=== PATIENT | male | born 1955 | race Caucasian/White ===

== ENCOUNTER 2025-06-28 10:18 | Outpatient (REF) | payer OTHER, MEDICARE, SELFPAY ==
--- NOTE | ~2025-06-28 | XR_ITS ---
EXAMINATION: XR SHOULDER, LEFT CLINICAL INFORMATION: M25.512 - Pain in left shoulder COMPARISON: None available. TECHNIQUE: Two views of the left shoulder. FINDINGS: Normal bone mineralization. No fracture, dislocation, or suspicious bone lesion. Normal alignment. The glenohumeral joint demonstrates mild degenerative arthritis. The AC joint demonstrates minimal widening and mild spurring is prominent superiorly. There is a type II acromion. No undersurface spurring. The subacromial space is preserved. Remainder of the soft tissue and bony structures appear normal. XR/XR shoulder LT min 2V IMPRESSION: 1. No acute bony abnormalities. 2. 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 Electronically signed by: Michael Mason MD 06/28/2025 11:23 AM EDT
--- OUTSIDE RECORDS SUMMARY | 2025-06-28 12:19 | XMS_ITS | Clinical Summary ---
Author Organization [facility] Address [address] [place] [phone] Phone Care Team Providers Care Advertising Clerk Name Role Phone Shelly Jane MD Primary Care Provider Allergies No known active allergies Medications meclizine (ANTIVERT) 25 mg tablet Take by mouth as needed Active olmesartan (BENICAR) 40 mg tablet Take 1 Tablet by mouth daily Active dilTIAZem LA (CARDIZEM LA) 180 mg 24 hr tablet dilTIAZem HCl ER 180 MG TABLET SR 24 HR Take by mouth Active lovastatin (MEVACOR) 40 mg tablet Take 1 Tablet by mouth at bedtime. Active celecoxib (CeleBREX) 200 mg capsule Take 1 capsule (200 mg total) by mouth 1 (one) time each day. 4 Active hydrocortisone (ANUSOL-HC) 2.5 % rectal cream APPLY TOPICALLY 3 TIMES A DAY DIRECTED 4 Active Surgical History Surgery Date Site/Laterality Comments KNEE SURGERY 09/22/2021 - 09/21/2022 Right SHOULDER SURGERY Right rotator cuff HERNIA REPAIR Bilateral inguinal Medical History Medical History Date Comments Change in bowel habits DX:Change in bowel habits Encounter for screening colonoscopy DX:Encounter for screening colonoscopy Hypertension Hyperlipidemia Social History Tobacco Use Types Packs/Day Years Used Date Smoking Tobacco: Former Cigars Smokeless Tobacco: Never Tobacco Cessation:Counseling Given: Not Answered Comments:cigars Alcohol Use Standard Drinks/Week Comments Yes 0 (1 standard drink = 0.6 oz pur e alcohol) Interpersonal Safety Answer Date Record ed Physical Abuse Unrecognized value 08/03/2024 Verbal Abuse Unrecognized value 08/03/2024 Sex and Gender Information Value Date Recorded Sex Assigned at Male 08/01/2024 1:32 PM EST Legal Sex Male 10:25 AM EST Gender Identity Male 08/01/2024 1:32 PM EST Sexual Orientation Straight 08/01/2024 1: 32 PM EST Obstetrics History Last Filed Vital Signs Vital Sign Reading Time Taken Comments Blood Pressure 176/56 08/03/2024 4:24 PM EST Pulse 55 08/03/2024 4:24 PM EST Temperature 36.7 C (98 F) 08/03/2024 4:24 PM EST Respiratory Rate 15 08/03/2024 4:24 PM EST Oxygen Saturation 99% 08/03/2024 4:24 PM EST Inhaled Oxygen Concentration - - Weight 75.8 kg (167 lb) 08/03/2024 3:21 PM EST Height 176.8 cm (5' 9.6 ) 08/03/2024 3:21 PM EST Body Mass Index 24.24 08/03/2024 3:21 PM EST Plan of Treatment Health Maintenance Due Date Last Done Comments DTaP,Tdap,and Td Vaccines (1 - Tdap) 1973 Pneumococcal Vaccine: 50+ Years (1 of 1 - PCV) 2004 Zoster Vaccines (1 of 2) 2004 Abdominal Aortic Aneurysm (AAA) Screen 08/20/2022 Cholesterol Screening (Lipid Panel) 08/20/2022 Hepatitis C Screening 08/20/2022 Medicare Annual Wellness Visit 08/20/2022 Social Influencers of Health Screening 08/20/2022 Hypertension/CHF/CAD Annual BMP Blood Test 08/03/2024 Depression Screening 09/22/2024 COVID-19 Vaccine ( season) 2025 12/21/2020, 11/30/2020 Influenza Vaccine (#1) 2025 3, 07/27/2022, 08/01/2021, Additional history exists Falls Risk Assessment 08/03/2025 08/03/2024 RSV Immunization Adult Patients (1 - 1-dose 75+ series) 2029 Colorectal Cancer Screening: Colonoscopy 08/03/2034 08/03/2024 HIB Vaccines Aged Out No longer eligi ble based on patient's age to complete this topic HPV Vaccines Aged Out No longer eligi ble based on patient's age to complete this topic Hepatitis A Vaccines Aged Out No long er eligible based on patient's age to complete this topic Hepatitis B Vaccines Aged Out No long er eligible based on patient's age to complete this topic IPV Vaccines Aged Out No longer eligi ble based on patient's age to complete this topic MMR Vaccines Aged Out No longer eligi ble based on patient's age to complete this topic Meningococcal ACWY Vaccine Aged Out N o longer eligible based on patient's age to complete this topic Meningococcal B Vaccine Aged Out No l onger eligible based on patient's age to complete this topic RSV Immunization Patients Under 20 months Aged Out No longer eligible based on patient's age to complete this topic Varicella Vaccines Aged Out No longer eligible based on patient's age to complete this topic Procedures Procedure Name Priority Date/Time Associated Diagnosis Comments COLONOSCOPY Routine 08/03/2024 4:03 PM EST Screen for colon cancer from Last 3 Months or Most Recently Relevant to Health Maintenance Results * COLONOSCOPY Anesthesia - MAC; [facility] ENDOSCOPY (08/03/2024 4:03 PM EST) Anatomical Region Laterality Modality Endoscopy 08/03/2024 3:40 PM EST Narrative 08/03/2024 4:04 PM EST [facility] GI Patient Name: Krystian Monk Procedure Date: 08/03/2024 3:40 PM Date of : 1955 Age: 68 Gender: Male Note Status: Finalized Attending MD: Matias Sinhg DO, [id number] Procedure Date No Time: 08/03/2024 Procedure: Colonoscopy Indications: Incidental change in bowel habits noted Providers: Matias Singh DO Referring MD: Shelly Jane MD Medicines: Monitored Anesthesia Care Complications: No immediate complications. Estimated blood loss: Minimal. Estimated Blood Loss: Estimated blood loss was minimal. Procedure: Pre-Anesthesia Assessment: - - Prior to the procedure, a History and Physical was performed, and patient medications and allergies were reviewed. The patient is competent. The risks and benefits of the procedure and the sedation options and risks were discussed with the patient. All questions were answered and informed consent was obtained. Patient identification and proposed procedure were verified by the physician, the nurse, the anesthesiologist, the mrp controller and the hazardous waste material technician in the pre-procedure area in the endoscopy suite. Mental Status Examination: alert and oriented. Airway Examination: normal oropharyngeal airway and neck mobility. Respiratory Examination: clear to auscultation. CV Examination: normal. Prophylactic Antibiotics: The patient does not require prophylactic antibiotics. Prior Anticoagulants: The patient has taken no anticoagulant or antiplatelet agents. ASA Grade Assessment: II - A patient with severe systemic disease. After reviewing the risks and benefits, the patient was deemed in satisfactory condition to undergo the procedure. The anesthesia plan was to use monitored anesthesia care (MAC). Immediately prior to administration of medications, the patient was re-assessed for adequacy to receive sedatives. The heart rate, respiratory rate, oxygen saturations, blood pressure, adequacy of pulmonary ventilation, and response to care were monitored throughout the procedure. The physical status of the patient was re-assessed after the procedure. After I obtained informed consent, the scope was passed under direct vision. Throughout the procedure, the patient's blood pressure, pulse, and oxygen saturations were monitored continuously.The Colonoscope was introduced through the anus and advanced to the terminal ileum. The colonoscopy was performed without difficulty. The patient tolerated the procedure well. The quality of the bowel preparation was good. Findings: Hemorrhoids were found on perianal exam. A few small-mouthed diverticula were found in the sigmoid colon and descending colon. There was no evidence of diverticular bleeding. The colon (entire examined portion) appeared normal. Biopsies were taken with a cold forceps for histology. Estimated blood loss was minimal. The terminal ileum contained two sessile, non-bleeding polyps. The polyps were 5 mm in diameter. The polyp was removed with a cold snare. Resection and retrieval were complete. Estimated blood loss was minimal. The exam was otherwise without abnormality on direct and retroflexion views. Impression: - Hemorrhoids found on perianal exam. - The entire examined colon is normal. Biopsied. - Two polyps in the terminal ileum, removed with a cold snare. Resected and retrieved. - The examination was otherwise normal on direct and retroflexion views. Recommendation: - - Discharge patient to home. - High fiber diet. - Continue present medications. - Await pathology results. - Repeat colonoscopy for surveillance based on pathology results. Procedure Code(s): --- Professional --- 05002, Colonoscopy, flexible; with removal of tumor(s), polyp(s), or other lesion(s) by snare technique 15645, 59, Colonoscopy, flexible; with biopsy, single or multiple Diagnosis Code(s): --- Professional --- D13.39, Benign neoplasm of other parts of small intestine K64.9, Unspecified hemorrhoids CPT copyright 2020 [employer]. All rights reserved. The codes documented in this report are preliminary and upon hook tender review may be revised to meet current compliance requirements. MATIAS SINGH Matias Singh DO 08/03/2024 4:04:16 PM This report has been signed electronically.Matias Singh DO Number of Addenda: 0 Note Initiated On: 08/03/2024 3:40 PM Scope Withdrawal Time: 0 hours 6 minutes 42 seconds Scope In: 3:51:35 PM Scope Out: 4:02:14 PM Endoscopy Department at [facility] - [address] [place] [phone] Procedure Note Matias Singh DO - 08/03/2024 [facility] GI Patient Name: Krystian Monk Procedure Date: 08/03/2024 3:40 PM Date of : 1955 Age: 68 Gender: Male Note Status: Finalized Attending MD: Matias Singh DO,[id number] Procedure Date No Time: 08/03/2024 Procedure: Colonoscopy Indications: Incidental change in bowel habits noted Providers: Matias Singh DO Referring MD: Shelly Jane MD Medicines: Monitored Anesthesia Care Complications: No immediate complications. Estimated blood loss: Minimal. Estimated Blood Loss: Estimated blood loss was minimal. Procedure: Pre-Anesthesia Assessment: - - Prior to the procedure, a History and Physicalwas performed, and patient medications and allergieswere reviewed. The patient is competent. The risks and benefits of the procedure and the sedation optionsand risks were discussed with the patient. Allquestions were answered and informed consent was obtained. Patient identification and proposed procedure were verified by the physician, the nurse, the anesthesiologist, the mrp controller and thetechnician in the pre-procedure area in the endoscopy suite. Mental Status Examination: alert and oriented.Airway Examination: normal oropharyngeal airway and neck mobility. Respiratory Examination: clear to auscultation. CV Examination: normal. Prophylactic Antibiotics: The patient does not requireprophylactic antibiotics. Prior Anticoagulants: The patient has taken no anticoagulant or antiplatelet agents. ASA Grade Assessment: II - A patient with severesystemic disease. After reviewing the risks and benefits,the patient was deemed in satisfactory condition to undergo the procedure. The anesthesia plan was touse monitored anesthesia care (MAC). Immediately priorto administration of medications, the patient was re-assessed for adequacy to receive sedatives. The heart rate, respiratory rate, oxygen saturations, blood pressure, adequacy of pulmonary ventilation,and response to care were monitored throughout the procedure. The physical status of the patient was re-assessed after the procedure. After I obtained informed consent, the scope was passed under direct vision. Throughout theprocedure, the patient's blood pressure, pulse, and oxygen saturations were monitored continuously.The Colonoscope was introduced through the anus and advanced to the terminal ileum. The colonoscopy was performed without difficulty. The patient tolerated the procedure well. The quality of the bowel preparation was good. Findings: Hemorrhoids were found on perianal exam. A few small-mouthed diverticula were found in the sigmoid colon and descending colon. There was no evidence of diverticular bleeding. The colon (entire examined portion) appearednormal. Biopsies were taken with a cold forceps forhistology. Estimated blood loss was minimal. The terminal ileum contained two sessile,non-bleeding polyps. The polyps were 5 mm in diameter. The polyp was removed with a cold snare. Resection andretrieval were complete. Estimated blood loss was minimal. The exam was otherwise without abnormality ondirect and retroflexion views. Impression: - Hemorrhoids found on perianal exam. - The entire examined colon is normal. Biopsied. - Two polyps in the terminal ileum, removed with a cold snare. Resected and retrieved. - The examination was otherwise normal on directand retroflexion views. Recommendation: - - Discharge patient to home. - High fiber diet. - Continue present medications. - Await pathology results. - Repeat colonoscopy for surveillance based on pathology results. Procedure Code(s): --- Professional --- 73719, Colonoscopy, flexible; with removal of tumor(s), polyp(s), or other lesion(s) by snare technique 51306, 59, Colonoscopy, flexible; with biopsy,single or multiple Diagnosis Code(s): --- Professional --- D13.39, Benign neoplasm of other parts of small intestine K64.9, Unspecified hemorrhoids CPT copyright 2020 [employer]. All rights reserved. The codes documented in this report are preliminary and upon hook tender reviewmay be revised to meet current compliance requirements. MATIAS SINGH Matias Singh DO 08/03/2024 4:04:16 PM This report has been signed electronically.Matias Singh DO Number of Addenda: 0 Note Initiated On: 08/03/2024 3:40 PM Scope Withdrawal Time: 0 hours 6 minutes 42 seconds Scope In: 3:51:35 PM Scope Out: 4:02:14 PM Endoscopy Department at [facility] - [address] [place] [phone] Matias Singh DO GI~PROCEDURE ORDERABLES Final Re sult from Last 3 Months or Most Recently Relevant to Health Maintenance Insurance MEDICARE [facility] Care Teams Advertising Clerk Relationship Specialty Start Date End Date Shelly Jane MD [address] [place] [address] PCP - General 02/10/24
== END 2025-06-28 10:19 | disposition home or self-care (01) ==
LOC: HO.HOSX 10:18
PROVIDERS: Visit Provider Orthopaedic Surgery
DX: M25.312 Other instability, left shoulder (principal)
CPT/HCPCS: 73030

== ENCOUNTER 2025-06-28 11:14 | Outpatient (AMB) | payer OTHER, MEDICARE, SELFPAY ==
--- NOTE | 2025-06-28 11:19 | MHC.OFFVIS ---
Vital Signs 06/28/25 11:29 Height 5 ft 8 in Weight 160 lb BMI 24.3 Intake Visit Reasons: Left shoulder pain and weakness Intake Note: Krystian is a 69 year old male right hand dominant who presents with complaints of progressively worsening left shoulder pain and weakness. The patient did undergo right shoulder surgery approximately 15 years ago. He reports minimal discomfort in his right shoulder. The patient states that he injured his left shoulder several months ago when he collided with another player while playing ice hockey. He fell directly onto his left shoulder. He has failed the last 6 weeks of conservative treatment which has included Tylenol, Celebrex, a home exercise program and physical therapy exercises. He has had cortisone injections in the past which gave him no relief. The patient has not been able to play hockey or cough because of his left shoulder pain and weakness. Allergies No Known Allergies Allergy (Verified 06/28/25 11:27) Medication List - Last Reconciled 06/28/25 by Austyn Ford MD amoxicillin 2,000 mg PO ONCE aspirin 81 mg PO DAILY celecoxib 200 mg PO DAILY diltiazem HCl CD 180 mg PO DAILY olmesartan 40 mg PO DAILY Physical Exam Const Other: Well-nourished well-developed very friendly male awake alert and oriented x3 in no acute distress Extrem Other: Left shoulder examination shows decreased range of motion when compared to his right shoulder, 4/5 strength with supraspinatus testing, positive impingement signs, tenderness over his acromioclavicular joint, no instability Results Reviewed Results Reviewed: X-rays of the patient's left shoulder show severe acromioclavicular joint narrowing, a type 2 acromion, no acute bony abnormalities Assessment & Plan Assessment & Plan (1) Rotator cuff insufficiency of left shoulder: Code(s): M25.312 - Other instability, left shoulder Category: Medical Plan Mr. Mckeon presents with progressively worsening left shoulder pain and weakness due to impingement syndrome and most likely a full-thickness rotator cuff tear. Thus, I will send the patient for an MRI of his left shoulder for further evaluation. I will see him back once the MRI is completed to discuss the findings and treatment options. He will continue with his range of motion exercises in the meantime. I spent 20 minutes in reviewing the patient's records and imaging studies, seeing the patient and documenting in the medical record. Orders: Orders MR odom LT wo con 10/08/25 M25.312 - Other instability, left shoulder XR shoulder LT min 2V Today M25.512 - Pain in left shoulder Coding Level of Care Code New Pt Level 3 (03925) Complex EM visit Add On G2211 Diagnoses Rotator cuff insufficiency of left shoulder M25.312
[2025-06-28 11:29] VITALS: BMI 24.3
== END 2025-06-28 11:43 | disposition home or self-care (01) ==
LOC: HO.HOS 11:14
PROVIDERS: Visit Provider Orthopaedic Surgery
DX: M25.312 Other instability, left shoulder (principal)
CPT/HCPCS: 99203

== ENCOUNTER → 2025-06-28 11:15 | Outpatient (BNV) | payer MEDICARE, OTHER, SELFPAY | PROVIDERS: Visit Provider Radiology Diagnostic Radiology | DX: M19.012 Primary osteoarthritis, left shoulder (principal) | CPT/HCPCS: 73030 ==

== ENCOUNTER → 2025-07-28 16:26 | Outpatient (BNV) | payer MEDICARE, OTHER, SELFPAY | PROVIDERS: PCP Internal Medicine Pulmonary Disease; Visit Provider Radiology Diagnostic Radiology | DX: M75.122 Complete rotator cuff tear or rupture of left shoulder, not specified as traumatic (principal); S43.302A Subluxation of unspecified parts of left shoulder girdle, initial encounter; M19.012 Primary osteoarthritis, left shoulder; M25.412 Effusion, left shoulder | CPT/HCPCS: 73221 ==

== ENCOUNTER 2025-07-28 16:27 | Outpatient (REF) | payer MEDICARE, OTHER, SELFPAY ==
--- NOTE | ~2025-07-28 | MR_ITS ---
EXAMINATION: MRI Shoulder without contrast, left TECHNIQUE: Multiplanar multisequence MR imaging through an upper extremity joint without contrast. INDICATION: Hit during a hockey game 2 months ago, shoulder pain since then PRIOR: None FINDINGS: Rotator Cuff: There is a full-thickness tear of supraspinatus and infraspinatus tendons which are retracted medially 2.5 cm. Superficial fibers of subscapularis tendon are torn and retracted. Deep fibers remain intact. More than half the tendon is torn. Labrum: There is a tear in the posterior labrum between 2-4:00. Long biceps tendon: Multiple displaced from the groove position superficial to the remaining intact fibers of subscapularis tendon. Acromioclavicular joint: There is mild elevation of distal clavicle. There is no acute edema. Axillary pouch: There is a small complex joint effusion. Articular cartilage: Near full-thickness cartilage defect is noted in the posterior half of the glenoid. There is thinning of articular cartilage in the central humeral head. Bones/Marrow: Degenerative cystic changes noted in the anterior half of the greater tuberosity. There are small marginal osteophytes involving humeral head and glenoid. Soft tissues: There is mild edema and fatty streaking involving supraspinatus and subscapularis muscles. MR/MR shoulder LT wo con IMPRESSION: Full-thickness rotator cuff tear involving supraspinatus and infraspinatus tendons with 2.5 cm retraction. There is mild edema and fatty streaking of supraspinatus muscle. There is a deep tear of the bursal surface of subscapularis tendon which is retracted to the level of the glenohumeral joint. Tear involves more than half the tendon thickness. There is edema within subscapularis muscle. Long biceps tendon is medially dislocated from biceps groove There is moderate degenerative change involving glenohumeral joint. Chronic type II AC joint separation There is small complex joint effusion Electronically signed by: Parminder Rico MD 07/28/2025 05:28 PM EST
--- OUTSIDE RECORDS SUMMARY | 2025-07-28 18:48 | XMS_ITS | Clinical Summary ---
Author Organization [facility] Address [address] [place] [phone] Phone Care Team Providers Care Manager Global Communications Name Role Phone Shelly Jane MD Primary [...] Maintenance Results * COLONOSCOPY Anesthesia - MAC; [facility] ENDOSCOPY (08/03/2024 4:03 PM EST) Anatomical Region Laterality Modality Endoscopy 08/03/2024 3:40 PM EST Narrative 08/03/2024 4:04 PM EST [facility] GI Patient Name: Krystian Monk Procedure Date: 08/03/2024 3:40 PM Date of : 1955 Age: 68 Gender: Male Note Status: Finalized Attending MD: Matias Singh DO, [id number] Procedure Date No Time: 08/03/2024 Procedure: Colonoscopy [...] the physician, the nurse, the anesthesiologist, the gunner mate and the medical supply technician in the pre-procedure area in the [...] pathology results. Procedure Code(s): --- Professional --- 45711, Colonoscopy, flexible; with removal of tumor(s), polyp(s), or other lesion(s) by snare technique 04987, 59, Colonoscopy, flexible; with biopsy, single or multiple Diagnosis Code(s): --- Professional --- D13.39, Benign neoplasm of other parts of small intestine K64.9, Unspecified hemorrhoids CPT copyright 2020 [employer]. All rights reserved. The codes documented in this report are preliminary and upon timber surveyor review may be revised to meet current compliance requirements. MATIAS SINGH Matias Singh DO 08/03/2024 4:04:16 PM This report has been signed electronically.Matias Singh DO Number of Addenda: 0 Note Initiated On: 08/03/2024 3:40 PM Scope Withdrawal Time: 0 hours 6 minutes 42 seconds Scope In: 3:51:35 PM Scope Out: 4:02:14 PM Endoscopy Department at [facility] - [address] [place] [phone] Procedure Note Matias Singh DO - 08/03/2024 [facility] GI Patient Name: Krystian Monk Procedure Date: 08/03/2024 3:40 PM Date of : 1955 Age: 68 Gender: Male Note Status: Finalized Attending MD: Matias Singh DO,[id number] Procedure Date No Time: 08/03/2024 Procedure: Colonoscopy [...] the physician, the nurse, the anesthesiologist, the gunner mate and thetechnician in the pre-procedure area in [...] pathology results. 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 All rights reserved. The codes documented in this report are preliminary and upon timber surveyor reviewmay be revised to meet current compliance requirements. MATIAS SINGH Matias Singh DO 08/03/2024 4:04:16 PM This report has been signed electronically.Matias Singh DO Number of Addenda: 0 Note Initiated On: 08/03/2024 3:40 PM Scope Withdrawal Time: 0 hours 6 minutes 42 seconds Scope In: 3:51:35 PM Scope Out: 4:02:14 PM Endoscopy Department at [facility] - [address] [place] [phone] Matias Singh DO GI~PROCEDURE ORDERABLES Final Re sult from Last 3 Months or Most Recently Relevant to Health Maintenance Insurance MEDICARE [facility] Care Teams Manager Global Communications Relationship Specialty Start Date End Date Shelly Jane MD [address] [place] [address] PCP - General 02/10/24
== END 2025-07-28 16:28 | disposition home or self-care (01) ==
LOC: HO.MRI 16:27
PROVIDERS: PCP Internal Medicine Pulmonary Disease; Visit Provider Orthopaedic Surgery
DX: M25.312 Other instability, left shoulder (principal)
CPT/HCPCS: 73221

== ENCOUNTER 2025-08-02 13:46 | Outpatient (AMB) | payer MEDICARE, OTHER, SELFPAY ==
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
[2025-08-02 13:51] VITALS: BMI 24.3
--- OUTSIDE RECORDS SUMMARY | 2025-08-02 15:23 | XMS_ITS | Clinical Summary ---
Author Organization [facility] Address [address] [place] [phone] Phone Care Team Providers Care Director Law Enforcement Name Role Phone Shelly Jane MD Primary [...] Maintenance Results * COLONOSCOPY Anesthesia - MAC; [facility] ENDOSCOPY (08/03/2024 4:03 PM EST) Anatomical Region Laterality Modality Endoscopy 08/03/2024 3:40 PM EST Narrative 08/03/2024 4:04 PM EST [facility] GI Patient Name: Krystian Monk Procedure Date: 08/03/2024 3:40 PM Date of : 1955 Age: 68 Gender: Male Note Status: Finalized Attending MD: Matias Singh DO, [id number] Procedure Date No Time: 08/03/2024 Procedure: Colonoscopy [...] the physician, the nurse, the anesthesiologist, the orchard pruner and the automobile technician in the pre-procedure area in the [...] pathology results. 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 All rights reserved. The codes documented in this report are preliminary and upon livestock rancher review may be revised to meet current compliance requirements. MATIAS SINGH Matias Singh DO 08/03/2024 4:04:16 PM This report has been signed electronically.Matias Singh DO Number of Addenda: 0 Note Initiated On: 08/03/2024 3:40 PM Scope Withdrawal Time: 0 hours 6 minutes 42 seconds Scope In: 3:51:35 PM Scope Out: 4:02:14 PM Endoscopy Department at [facility] - [address] [place] [phone] Procedure Note Matias Singh DO - 08/03/2024 [facility] GI Patient Name: Krystian Monk Procedure Date: 08/03/2024 3:40 PM Date of : 1955 Age: 68 Gender: Male Note Status: Finalized Attending MD: Matias Singh DO,[id number] Procedure Date No Time: 08/03/2024 Procedure: Colonoscopy [...] the physician, the nurse, the anesthesiologist, the orchard pruner and thetechnician in the pre-procedure area in [...] pathology results. 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 All rights reserved. The codes documented in this report are preliminary and upon livestock rancher reviewmay be revised to meet current compliance requirements. MATIAS SINGH Matias Singh DO 08/03/2024 4:04:16 PM This report has been signed electronically.Mtaias Singh DO Number of Addenda: 0 Note Initiated On: 08/03/2024 3:40 PM Scope Withdrawal Time: 0 hours 6 minutes 42 seconds Scope In: 3:51:35 PM Scope Out: 4:02:14 PM Endoscopy Department at [facility] - [address] [place] [phone] Matias Singh DO GI~PROCEDURE ORDERABLES Final Re sult from Last 3 Months or Most Recently Relevant to Health Maintenance Insurance MEDICARE [facility] Care Teams Director Law Enforcement Relationship Specialty Start Date End Date Shelly Jane MD [address] [place] [address] PCP - General 02/10/24
== END 2025-08-02 14:12 | disposition home or self-care (01) ==
LOC: HO.HOS 13:46
PROVIDERS: PCP Internal Medicine Pulmonary Disease; Visit Provider Orthopaedic Surgery
DX: M25.312 Other instability, left shoulder (principal)
CPT/HCPCS: 99213; G2211

== ENCOUNTER → 2025-08-02 13:46 | Outpatient (BNVA) | payer MEDICARE, OTHER, SELFPAY | PROVIDERS: PCP Internal Medicine Pulmonary Disease; Visit Provider Orthopaedic Surgery | DX: M25.512 Pain in left shoulder (principal); M25.312 Other instability, left shoulder; Z79.82 Long term (current) use of aspirin | CPT/HCPCS: 99212 ==

== ENCOUNTER 2025-08-22 13:20 | Outpatient (AMB) | payer MEDICARE, OTHER, SELFPAY ==
[2025-08-22 13:22] VITALS: BMI 24.3
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
[2025-08-22 13:24] VITALS: BMI 24.3
--- OUTSIDE RECORDS SUMMARY | 2025-08-22 16:56 | XMS_ITS | Clinical Summary ---
Author Organization [facility] Address [address] [place] [phone] Phone Care Team Providers Care Phlebotomy Director Name Role Phone Shelly Jane MD Primary [...] Screen 08/20/2022 Cholesterol Screening (Lipid Panel) 08/20/2022 Falls Risk Assessment 08/20/2022 Hepatitis C Screening 08/20/2022 Medicare Annual Wellness Visit 08/20/2022 Social Influencers of Health Screening 08/20/2022 Hypertension/CHF/CAD Annual BMP Blood Test 08/03/2024 Depression Screening 09/22/2024 COVID-19 Vaccine ( season) 2025 12/21/2020, 11/30/2020 Influenza Vaccine (#1) 2025 3, 07/27/2022, 08/01/2021, Additional history exists RSV Immunization Adult Patients (1 - 1-dose [...] Maintenance Results * COLONOSCOPY Anesthesia - MAC; [facility] ENDOSCOPY (08/03/2024 4:03 PM EST) Anatomical Region Laterality Modality Endoscopy 08/03/2024 3:40 PM EST Narrative 08/03/2024 4:04 PM EST [facility] GI Patient Name: Krystian Monk Procedure Date: 08/03/2024 3:40 PM Date of : 1955 Age: 68 Gender: Male Note Status: Finalized Attending MD: Matias Singh DO, [id number] Procedure Date No Time: 08/03/2024 Procedure: Colonoscopy [...] the physician, the nurse, the anesthesiologist, the milk wagon driver and the waste minimization technician in the pre-procedure area in the [...] pathology results. 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 All rights reserved. The codes documented in this report are preliminary and upon section gang worker review may be revised to meet current compliance requirements. MATIAS SINGH Matias Singh DO 08/03/2024 4:04:16 PM This report has been signed electronically.Matias Singh DO Number of Addenda: 0 Note Initiated On: 08/03/2024 3:40 PM Scope Withdrawal Time: 0 hours 6 minutes 42 seconds Scope In: 3:51:35 PM Scope Out: 4:02:14 PM Endoscopy Department at [facility] - [address] [place] [phone] Procedure Note Matias Singh DO - 08/03/2024 [facility] GI Patient Name: Krystian Monk Procedure Date: 08/03/2024 3:40 PM Date of : 1955 Age: 68 Gender: Male Note Status: Finalized Attending MD: Matias Singh DO,[id number] Procedure Date No Time: 08/03/2024 Procedure: Colonoscopy [...] the physician, the nurse, the anesthesiologist, the milk wagon driver and thetechnician in the pre-procedure area in [...] pathology results. 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 All rights reserved. The codes documented in this report are preliminary and upon section gang worker reviewmay be revised to meet current compliance requirements. MATIAS SINGH Matias Singh DO 08/03/2024 4:04:16 PM This report has been signed electronically.Matias Singh DO Number of Addenda: 0 Note Initiated On: 08/03/2024 3:40 PM Scope Withdrawal Time: 0 hours 6 minutes 42 seconds Scope In: 3:51:35 PM Scope Out: 4:02:14 PM Endoscopy Department at [facility] - [address] [place] [phone] Matias Singh DO GI~PROCEDURE ORDERABLES Final Re sult from Last 3 Months or Most Recently Relevant to Health Maintenance Insurance MEDICARE [facility] Care Teams Phlebotomy Director Relationship Specialty Start Date End Date Shelly Jane MD [address] [place] [address] PCP - General 02/10/24
== END 2025-08-22 14:09 | disposition home or self-care (01) ==
LOC: HO.HOS 13:21
PROVIDERS: PCP Internal Medicine Pulmonary Disease; Visit Provider Orthopaedic Surgery
DX: M25.312 Other instability, left shoulder (principal)
CPT/HCPCS: 20610; 99214

== ENCOUNTER → 2025-08-22 13:20 | Outpatient (BNVA) | payer MEDICARE, OTHER, SELFPAY | PROVIDERS: PCP Internal Medicine Pulmonary Disease; Visit Provider Orthopaedic Surgery | DX: M25.312 Other instability, left shoulder (principal) | CPT/HCPCS: 20610; 99212; J0665; J1100; J2003 ==